=== PATIENT | female | born 2000 | race African-American/Black ===

== ENCOUNTER 2023-07-10 01:46 | Emergency (ER) | payer OTHER ==
[2023-07-10] MEDS ORDERED: Dexamethasone 4 MG TAB ONE (02:01)
[2023-07-10] MEDS ORDERED: Albuterol 2.5 MG (0.5 mL) NEB ONE (02:11)
[2023-07-10] MEDS ORDERED: Ipratropium/Albuterol 3 ML NEB ONE (02:13)
== END 2023-07-10 03:11 | disposition home or self-care (01) ==
LOC: CSHERS 01:46
DX: J45.901 Unspecified asthma with (acute) exacerbation (principal); Z55.6 Problems related to health literacy; Z79.899 Other long term (current) drug therapy
CPT/HCPCS: J7611; J7620; J8540